=== PATIENT | female | born 1945 | race Caucasian/White ===

== ENCOUNTER 2024-09-26 17:07 | Inpatient (IN) | payer OTHER ==
[2024-09-26] MEDS ORDERED: ACETAMINOPHEN INJECTION 100 ML ONE (19:23)
[2024-09-26] MEDS: ACETAMINOPHEN 1000 MG/100 ML BAG IVPB ONE (19:42)
[2024-09-26 19:52] LABS: ABSOLUTE IMMATURE GRANULOCYTES 0.02 x10^3/uL (0.0-0.031); BASOPHILS # 0.03 x10^3/uL (0.01-0.08); EOSINOPHIL % 1.9 % (0.7-5.8); EOSINOPHILS # 0.14 x10^3/uL (0.04-0.36); HEMATOCRIT 30.5 % (34.1-44.9); HEMOGLOBIN 9.9 g/dL (11.2-15.7); MCHC 32.5 g/dl (32.2-35.5); MEAN PLT VOLUME 10.3 fl (9.4-12.3); MONOCYTE # 0.48 x10^3/uL (0.24-0.86); MONOCYTE % 6.4 % (4.7-12.5); PLATELET COUNT 221 x10^3/uL (182-369); RDW 14.5 % (12.5-17.0)
[2024-09-26 20:00] LABS: INR 1.29 (0.83-1.09); PROTHROMBIN TIME (PATIENT) 14.2 SEC (9.7-13.0)
[2024-09-26 20:03] LABS: ACTIVATED PTT 31.1 SECONDS (25.2-36.5)
[2024-09-26 20:19] LABS: POTASSIUM 4.7 mmol/L (3.5-5.1)
[2024-09-26 20:22] LABS: ALBUMIN 2.7 g/dl (3.4-5.0); BLOOD UREA NITROGEN 27.2 mg/dL (7-18); CALCIUM 9.4 mg/dL (8.5-10.1)
[2024-09-26 20:25] LABS: CREATININE 1.5 mg/dL (0.55-1.3)
[2024-09-26 20:26] LABS: BILIRUBIN,TOTAL 0.3 mg/dL (0.2-1); TOT PROT 6.6 g/dl (6.4-8.2)
[2024-09-26] MEDS ORDERED: MORPHINE SULFATE 2 MG/ML SYRINGE ONE (21:06)
[2024-09-26] MEDS: morphine CARPU-JECT 2 MG/1 ML DISP.SYRIN IVPUSH ONE (21:13)
[2024-09-26] MEDS: INSULIN ASPART SLIDING SCALE (NOVOLOG) 1 VIAL SQ SCH (21:58)
[2024-09-26] MEDS ORDERED: HEPARIN NA (PORCINE) 5,000 UNITS/ML 1ML VIAL ONE (22:00)
[2024-09-26] MEDS: HEPARIN NA (PORCINE) 5,000 UNITS/ML 1ML VIAL SQ SCH (22:10)
[2024-09-26] MEDS ORDERED: ACETAMINOPHEN 325 MG TABLET (FP) PO PRN (23:30)
[2024-09-27 01:16] VITALS: BMI 25.7
[2024-09-27] MEDS ORDERED: ACETAMINOPHEN 325 MG TABLET (FP) PO PRN (01:53)
[2024-09-27] MEDS: ACETAMINOPHEN 325 MG TABLET (FP) PO PRN (02:37)
[2024-09-27 08:32] LABS: HEMATOCRIT 27.4 % (34.1-44.9); HEMOGLOBIN 8.8 g/dL (11.2-15.7); MCHC 32.1 g/dl (32.2-35.5); MEAN PLT VOLUME 10.3 fl (9.4-12.3); PLATELET COUNT 210 x10^3/uL (182-369); RDW 14.4 % (12.5-17.0)
[2024-09-27 08:58] LABS: POTASSIUM 4.1 mmol/L (3.5-5.1)
[2024-09-27 09:00] LABS: ALBUMIN 2.4 g/dl (3.4-5.0); CALCIUM 8.8 mg/dL (8.5-10.1)
[2024-09-27 09:01] LABS: BLOOD UREA NITROGEN 21.6 mg/dL (7-18)
[2024-09-27 09:04] LABS: CREATININE 1.1 mg/dL (0.55-1.3); PHOSPHOROUS 3.7 mg/dL (2.5-4.9)
[2024-09-27 09:05] LABS: BILIRUBIN,TOTAL 0.3 mg/dL (0.2-1)
[2024-09-27] MEDS: LIDOCAINE 5% TOPICAL PATCH TP ONE (20:24)
[2024-09-27] MEDS: CHOLESTYRAMINE/NUTRASWEET 4 GM PACKET PO SCH (21:39)
[2024-09-28] MEDS: LEVOTHYROXINE NA 50 MCG TABLET (FP) PO SCH (06:10)
[2024-09-28 09:16] LABS: HEMATOCRIT 29.6 % (34.1-44.9); HEMOGLOBIN 9.5 g/dL (11.2-15.7); MCHC 32.1 g/dl (32.2-35.5); MEAN CELL VOLUME 102.8 fl (79.4-94.8); MEAN PLT VOLUME 10.4 fl (9.4-12.3); PLATELET COUNT 240 x10^3/uL (182-369)
[2024-09-28 09:36] LABS: POTASSIUM 4.3 mmol/L (3.5-5.1)
[2024-09-28 09:41] LABS: ALBUMIN 2.6 g/dl (3.4-5.0); BLOOD UREA NITROGEN 19.1 mg/dL (7-18); CALCIUM 9.4 mg/dL (8.5-10.1); MAGNESIUM 1.9 mg/dL (1.8-2.4)
[2024-09-28 09:44] LABS: PHOSPHOROUS 3.2 mg/dL (2.5-4.9)
[2024-09-28 09:45] LABS: BILIRUBIN,TOTAL 0.4 mg/dL (0.2-1); TOT PROT 6.3 g/dl (6.4-8.2)
[2024-09-28] MEDS: LIDOCAINE PATCH REMOVAL MC SCH (10:07)
[2024-09-28] MEDS: METOPROLOL TARTRATE 50 MG TABLET (FP) PO SCH ×2 (10:08→21:32)
[2024-09-28] MEDS ORDERED: HEPARIN NA (PORCINE) 5,000 UNITS/ML 1ML VIAL ONE ×2 (14:03→18:30)
[2024-09-28] MEDS ORDERED: LIDOCAINE HCL 1%, 10 MG/ML (20ML VIAL) ONE (14:03)
[2024-09-28] MEDS ORDERED: MIDAZOLAM HCL 2 MG/2 ML SINGLE DOSE VIAL ONE (17:04)
[2024-09-28] MEDS ORDERED: PROPOFOL 20 ML ONE (17:05)
[2024-09-28] MEDS ORDERED: ONDANSETRON 4 MG/2 ML VIAL ONE (17:07)
[2024-09-28] MEDS: ceFAZolin SODIUM 1 GM VIAL IVPB ONE (18:10)
[2024-09-28] MEDS: LIDOCAINE HCL 1%, 10 MG/ML (20ML VIAL) INF ONE (19:38)
[2024-09-28] MEDS ORDERED: PROTAMINE SULFATE 50 MG/5 ML VIAL ONE (19:40)
[2024-09-28] MEDS ORDERED: ONDANSETRON 4 MG/2 ML VIAL IVPUSH PRN (19:56)
[2024-09-28] MEDS ORDERED: LACTATED RINGERS SOLUTION 1,000 ML IV SCH (20:00)
[2024-09-28] MEDS ORDERED: ACETAMINOPHEN 325 MG TABLET (FP) PO PRN (20:04)
[2024-09-28] MEDS: CHOLESTYRAMINE/NUTRASWEET 4 GM PACKET PO SCH (21:31)
[2024-09-28] MEDS: HEPARIN NA (PORCINE) 5,000 UNITS/ML 1ML VIAL SQ SCH (21:32)
[2024-09-28] MEDS: INSULIN ASPART SLIDING SCALE (NOVOLOG) 1 VIAL SQ SCH (21:32)
[2024-09-29] MEDS: LEVOTHYROXINE NA 50 MCG TABLET (FP) PO SCH (06:13)
[2024-09-29 06:50] VITALS: TEMP 98.2
[2024-09-29 08:28] LABS: HEMATOCRIT 29.6 % (34.1-44.9); HEMOGLOBIN 9.6 g/dL (11.2-15.7); MCHC 32.4 g/dl (32.2-35.5); MEAN CELL VOLUME 103.1 fl (79.4-94.8); MEAN PLT VOLUME 10.5 fl (9.4-12.3); PLATELET COUNT 231 x10^3/uL (182-369); RDW 13.5 % (12.5-17.0)
[2024-09-29 08:30] LABS: POTASSIUM 5.1 mmol/L (3.5-5.1)
[2024-09-29 08:37] LABS: ALBUMIN 2.6 g/dl (3.4-5.0)
[2024-09-29 08:38] LABS: CALCIUM 9.5 mg/dL (8.5-10.1)
[2024-09-29 08:39] LABS: BILIRUBIN,TOTAL 0.3 mg/dL (0.2-1); MAGNESIUM 1.9 mg/dL (1.8-2.4); TOT PROT 6.4 g/dl (6.4-8.2)
[2024-09-29 08:40] LABS: PHOSPHOROUS 3.9 mg/dL (2.5-4.9)
[2024-09-29 09:35] VITALS: BP 122/45; PULSE 78; RESP 18
[2024-09-29] MEDS: ACETAMINOPHEN WITH CODEINE 300MG/30MG TABLET PO PRN (15:16)
== END 2024-09-29 18:08 | disposition home or self-care (01) | DRG 253 ==
LOC: JER 17:07 → JERBED 20:38 → J6S 22:30
PROVIDERS: ADMIT Student in an Organized Health Care Education/Training Program; ATTEND Internal Medicine
PROC: 047R3ZZ Dilation of Right Posterior Tibial Artery, Percutaneous Approach (ICD-10-PCS; 2024-09-28)
PROC: 047P3ZZ Dilation of Right Anterior Tibial Artery, Percutaneous Approach (ICD-10-PCS; 2024-09-28)
PROC: 047T3ZZ Dilation of Right Peroneal Artery, Percutaneous Approach (ICD-10-PCS; principal; 2024-09-28 17:00)
DX: E11.52 Type 2 diabetes mellitus with diabetic peripheral angiopathy with gangrene (principal); I96 Gangrene, not elsewhere classified; I10 Essential (primary) hypertension; D53.9 Nutritional anemia, unspecified; L97.519 Non-pressure chronic ulcer of other part of right foot with unspecified severity; L97.509 Non-pressure chronic ulcer of other part of unspecified foot with unspecified severity; E11.621 Type 2 diabetes mellitus with foot ulcer; E03.9 Hypothyroidism, unspecified; E78.5 Hyperlipidemia, unspecified
CPT/HCPCS: 36415; 73721-RT-TC; 76000-TC-FY; 80053; 82607; 82746; 82962; 83735; 84100; 84484; 85025; 85027; 85610; 85730; 86850; 86900; 86901; 93005; 93010; 93922; 93926-TC; 94010; 94760; 99291; C1760; C1769; C1894; J0131; J1644